=== PATIENT | female | born 1970 | race Two or more races ===

== ENCOUNTER 2022-12-21 18:07 | Emergency (ER) | payer OTHER ==
[~2022-12-21] VITALS: Ht 152.4 cm; Wt 83.9 kg
--- NOTE | 2022-12-21 18:10 | NUR ---
RECEIVED PT 52 YRS FEMALE CAME FROM HOME C/O PAIN ON LT ELBOW AND LT KNEE AWAKE AND ALERT NO DIFFORMITY PAIN 04/06
--- NOTE | 2022-12-21 18:25 | NUR ---
SEEN BY DR. GABRIEL
--- NOTE | 2022-12-21 18:30 | NUR ---
X RAY DONE AT BED SIDE
[2022-12-21] MEDS ORDERED: IBUPROFEN 600 MG TABLET ONE (18:55)
[2022-12-21] MEDS ORDERED: ACETAMINOPHEN ES 500 MG TABLET ONE (18:55)
[2022-12-21] MEDS ORDERED: ACETAMINOPHEN ES 500 MG TABLET PO ONE (19:00)
[2022-12-21] MEDS ORDERED: IBUPROFEN 600 MG TABLET PO ONE (19:00)
[2022-12-21] MEDS ORDERED: IBUP-1953 PO (20:29)
--- NOTE | 2022-12-21 20:50 | NUR ---
Patient discharged to home in stable condition. Written and verbal after care instructions given. Patient verbalizes understanding of instruction.Pt ambulatory with a steady gait
[2022-12-21 21:01] VITALS: BP 135/85
== END 2022-12-21 21:02 | disposition home or self-care (01) ==
LOC: ER 18:15
DX: S50.02XA Contusion of left elbow, initial encounter (principal); S20.212A Contusion of left front wall of thorax, initial encounter; S80.02XA Contusion of left knee, initial encounter; Z98.890 Other specified postprocedural states; Z85.3 Personal history of malignant neoplasm of breast; W01.0XXA Fall on same level from slipping, tripping and stumbling without subsequent striking against object, initial encounter; Y93.89 Activity, other specified; Y92.512 Supermarket, store or market as the place of occurrence of the external cause; Y99.8 Other external cause status
CPT/HCPCS: 71100-TC; 73080-TC; 73564-TC

== ENCOUNTER 2024-04-02 12:33 | Emergency (ER) | payer OTHER ==
[~2024-04-02] VITALS: Ht 167.6 cm; Wt 82.1 kg
[~2024-04-02 12:33] MED LIST: IBUP-1953 PO
[2024-04-02] MEDS ORDERED: ONDANSETRON HCL/PF 4 MG/2 ML VIAL ONE (13:23)
[2024-04-02] MEDS: ONDANSETRON HCL/PF 4 MG/2 ML VIAL IVP ONE (13:30)
[2024-04-02] MEDS ORDERED: ACETAMINOPHEN ES 500 MG TABLET ONE (13:44)
[2024-04-02 13:45] LABS: BASOPHILS % (AUTO) 0.6 % (0.0-2.0); EOSINOPHILS # (AUTO) 0.1 K/uL (0.0-0.7); EOSINOPHILS % (AUTO) 1.8 % (0.0-6.0); HEMATOCRIT 40 % (33-45); HEMOGLOBIN 13.7 g/dL (11.5-14.8); LYMPHOCYTES # (AUTO) 2.1 K/uL (0.8-4.8); LYMPHOCYTES % (AUTO) 29.8 % (20.0-44.0); MEAN CORPUSCULAR HEMOGLOBIN 27 PG (26.0-33.0); MEAN CORPUSCULAR HGB CONC 34 g/dl (31.0-36.0); MEAN CORPUSCULAR VOLUME 80 fL (82-100); MONOCYTES # (AUTO) 0.4 K/uL (0.1-1.30); MONOCYTES % (AUTO) 5.5 % (2.0-12.0); NEUTROPHILS # (AUTO) 4.4 K/uL (1.8-8.9); NEUTROPHILS % (AUTO) 62.3 % (43.0-81.0); PLATELET COUNT (AUTO) 337 K/uL (150-450); RED BLOOD CELL COUNT(AUTO) 5.04 MIL/uL (4.0-5.2); RED CELL DISTRIBUTION WIDTH 14.4 % (11.5-15.0); WHITE BLOOD COUNT (AUTO) 7.1 K/uL (4.3-11.0)
[2024-04-02] MEDS ORDERED: IBUPROFEN 600 MG TABLET ONE (13:47)
[2024-04-02] MEDS: IBUPROFEN 600 MG TABLET PO ONE (13:48)
[2024-04-02 14:03] LABS: CALCIUM, SERUM 9.3 mg/dL (8.5-10.1); CREATININE 0.6 mg/dL (0.6-1.3); POTASSIUM 3.6 mmol/L (3.5-5.1)
[2024-04-02 14:08] LABS: ALBUMIN 3.7 g/dL (3.4-5.0); BILIRUBIN,DIRECT 0.1 mg/dL (0.0-0.2); BILIRUBIN,TOTAL 0.4 mg/dL (0.2-1.0); TOTAL PROTEIN, SERUM 7.7 g/dL (6.4-8.2)
[2024-04-02] MEDS ORDERED: IBUP-2314 PO (14:50)
[2024-04-02] MEDS ORDERED: ONDA4TAB11 PO (14:50)
[2024-04-02 15:07] VITALS: BP 141/81; TEMP 97.9; O2SAT 98
== END 2024-04-02 15:08 | disposition home or self-care (01) ==
LOC: ER 12:36
DX: R11.2 Nausea with vomiting, unspecified (principal); M79.10 Myalgia, unspecified site; R51.9 Headache, unspecified; Z85.3 Personal history of malignant neoplasm of breast; V43.52XA Car driver injured in collision with other type car in traffic accident, initial encounter; Y93.89 Activity, other specified; Y92.488 Other paved roadways as the place of occurrence of the external cause; Y99.8 Other external cause status
CPT/HCPCS: 99283; 96374; 85025; 80048; 83690; 80076; 36415; J2405